=== PATIENT | female | born 1965 | race Caucasian/White ===

== ENCOUNTER 2018-12-12 07:45 | Outpatient (CLI) | payer OTHER ==
--- NOTE | 2018-12-23 16:10 | Mammography Report ---
Reason: POST MENOPAUSAL STATUS Procedure Date: 12/12/2018 Accession Number: [id number] / [id number] Procedure: [facility] - Screening Mammo w/Temo CPT Code: FULL RESULT: EXAM: Screening Mammo w/Temo DATE: 12/12/2018 8:23 AM CLINICAL HISTORY: Routine screening TECHNIQUE: (B) - Bilateral CC and MLO views were obtained. COMPARISON: 07/20/2015 PARENCHYMAL PATTERN: (D) - The breasts demonstrate heterogeneously dense fibroglandular parenchyma bilaterally. FINDINGS: Increased fatty replacement of the breast tissue compared with prior. There are no suspicious masses, calcifications, or areas of distortion. Stable left breast 1 cm upper outer quadrant nodule. IMPRESSION: Negative examination. BI-RADS category 1. RECOMMENDATION: (ANNUAL) - Recommend routine annual screening mammography. BI-RADS CATEGORY: (1) - Negative. STANDARD QUALIFYING STATEMENTS: 1. This examination was not reviewed with the aid of Computer-Aided Detection (CAD). 2. A negative or benign imaging report should not preclude biopsy if clinically suspicious findings are present. 3. Dense breasts may obscure an underlying neoplasm. 4. This examination was reviewed with the aid of 3D breast imaging (tomosynthesis).
== END 2018-12-12 07:46 | disposition home or self-care (01) ==
LOC: DI 07:45
DX: Z12.31 Encounter for screening mammogram for malignant neoplasm of breast (principal)
CPT/HCPCS: 77063; 77067